=== PATIENT | female | born 1950 | race Caucasian/White ===

== ENCOUNTER 2016-12-14 09:04 | Emergency (ER) | payer MEDICARE, OTHER ==
[2016-12-14 09:10] VITALS: BP 147/80; PULSE 95; TEMP 98.3; BMI 36.6
--- NOTE | 2016-12-14 09:23 | PDOC ---
History of Present Illness - General Chief Complaint: Injury Stated Complaint: FALL/ LT HAND PAIN Time Seen by Provider: 12/14/16 09:17 History Source: Patient Exam Limitations: No Limitations - History of Present Illness Initial Comments: 12/14/16 09:18 Status post fall this morning breaking fall with her left hand and wrist. Complaints of pain and deformity. No numbness or tingling to hand, denies any other injury 12/14/16 13:36 12/14/16 13:36 Occurred: reports: yesterday Severity: reports: moderate Pain Location: reports: none Method of Injury: Yes: fall Modifying Factors: improves with: None Loss of Consciousness: no loss of consciousness Past History - Travel Traveled outside of the country in the last 30 days: No Close contact w/someone who was outside of country & ill: No - Past Medical History Allergies/Adverse Reactions: Allergies Allergy/AdvReac Type Severity Reaction Status Date / Time Penicillins Allergy Verified 12/14/16 09:11 Home Medications: Ambulatory Orders Acetaminophen [Tylenol -] 1,000 mg PO Q6H #60 tablet 12/14/16 HTN: Yes - Suicide/Smoking/Psychosocial Hx Smoking History: Never smoked Hx Alcohol Use: No Drug/Substance Use Hx: No Trauma Specific PMHX - Complaint Specific PMHX Back Injury: No Neck Injury: No Review of Systems - Review of Systems Able to Perform ROS?: Yes Is the patient limited Slovak proficient: Yes Constitutional: Yes: Symptoms Reported, See HPI. No: Fever, Malaise HEENTM: No: Symptoms Reported Respiratory: No: Symptoms reported Musculoskeletal: Yes: Symptoms Reported, See HPI, Joint Pain, Joint Swelling, Muscle Pain, Joint Stiffness Integumentary: Yes: Symptoms Reported, Bruising Neurological: Yes: See HPI. No: Symptoms reported All Other Systems: Reviewed and Negative *Physical Exam - Vital Signs Last Vital Signs Temp Pulse Resp BP Pulse Ox 98.3 F 95 H 20 147/80 98 12/14/16 09:08 12/14/16 09:08 12/14/16 09:08 12/14/16 09:08 12/14/16 09:08 - Physical Exam General Appearance: Yes: Nourished, Appropriately Dressed, Apparent Distress HEENT: positive: SANTINO, Normal ENT Inspection, TMs Normal, Pharynx Normal Neck: positive: Tender, Supple Respiratory/Chest: positive: Normal Breath Sounds Gastrointestinal/Abdominal: positive: Soft. negative: Tender Musculoskeletal: positive: Normal Inspection. negative: Vertebral Tenderness Extremity: positive: Normal Capillary Refill. negative: Normal Inspection, Normal Range of Motion Integumentary: positive: Swelling, Ecchymosis Neurologic: positive: manager of learning II-XII NML intact, Fully Oriented, Alert, Normal Mood/ Affect, Normal Response, Motor Strength 5/5 ED Treatment Course - RADIOLOGY Radiology Studies Ordered: Category Date Time Status WRIST-LEFT [RAD] Stat Radiology 12/14/16 09:17 Ordered Progress Note - Progress Note Progress Note: Comminuted fracture distal radius and ulna. Dr. Don noted x-ray, requests volar splint which was placed with Ortho-Glass, sling, patient refused pain medication therefore sent extra strength Tylenol 2 pharmacy and will follow-up with him on Monday for casting. *DC/Admit/Observation/Transfer Diagnosis at time of Disposition: Colles' fracture of radius Qualifiers: Encounter type: initial encounter Fracture type: closed Laterality: left Qualified Code(s): S52.532A - Colles' fracture of left radius, initial encounter for closed fracture - Discharge Dispostion Disposition: HOME Condition at time of disposition: Stable Admit: No - Prescriptions Prescriptions: Acetaminophen [Tylenol -] 1,000 mg PO Q6H #60 tablet - Referrals Referrals: Zahra Michelle MD [Primary Care Provider] - Anant Don MD [Staff Physician] - - Patient Instructions Printed Discharge Instructions: DI for Wrist Fracture Additional Instructions: Rest, ice to area on and off for 15 minutes 4-6 times a day Avoid heavy lifting or exercise until pain and swelling is resolved or until further directed Keep area highly elevated to reduce swelling Use splints/Sukhwinder wrap as directed Call Dr. Horton office for appointment on Monday for casting May use Tylenol 2-500 mg tablets every 6 hours as needed for pain - Post Discharge Activity Forms/Work/School Notes: Back to Work
== END 2016-12-14 10:39 | disposition home or self-care (01) ==
LOC: JERFT 09:04
PROC: 2W3DX1Z Immobilization of Left Lower Arm using Splint (ICD-10-PCS; principal; 2016-12-14)
DX: S52.532A Colles' fracture of left radius, initial encounter for closed fracture (principal); W01.0XXA Fall on same level from slipping, tripping and stumbling without subsequent striking against object, initial encounter; Y93.89 Activity, other specified; Y92.89 Other specified places as the place of occurrence of the external cause; Y99.8 Other external cause status
CPT/HCPCS: 73110-TC-LT; 99282-25